=== PATIENT | male | born 1980 | race Two or more races ===

== ENCOUNTER 2018-05-31 03:30 | Emergency (ER) | payer MEDICAID, OTHER ==
[~2018-05-31] VITALS: Ht 170.2 cm; Wt 77.1 kg
[2018-05-31 03:42] VITALS: BP 129/87
[2018-05-31] MEDS ORDERED: BACITRACIN TOP OINT 1 UD PKG TOP ONE (07:45)
[2018-05-31] MEDS ORDERED: LIDOCAINE 1% (LOCAL ANESTH.) PF 5ml SDV ID ONE (07:45)
== END 2018-05-31 10:09 | disposition home or self-care (01) ==
LOC: ER 03:30 → EDBD 03:30 → ER 10:07
DX: S61.210A Laceration without foreign body of right index finger without damage to nail, initial encounter (principal); W31.2XXA Contact with powered woodworking and forming machines, initial encounter; Y93.89 Activity, other specified; Y99.8 Other external cause status; Y92.89 Other specified places as the place of occurrence of the external cause
CPT/HCPCS: 12001; 73130